=== PATIENT | male | born 1960 | race Caucasian/White ===

== ENCOUNTER 2017-03-17 19:30 | Emergency (ER) | payer BC ==
[2017-03-17] MEDS ORDERED: Nitroglycerin 0.4 MG TAB (25 Tab Bottle) ONE (19:46)
[2017-03-17] MEDS ORDERED: Metoprolol Tartrate 5 MG/5 ML VIAL ONE (19:46)
[2017-03-17] MEDS ORDERED: Heparin 5,000 UNITS/ML VIAL ONE (19:52)
[2017-03-17] MEDS ORDERED: Heparin 25,000 units/D5W 500 ML ONE (19:58)
[2017-03-17 19:59] LABS: #Basophils 0.2 thou/uL (0.0-0.2); #Eosinphils 0.5 thou/uL (0.0-0.7); #Monocytes 0.9 thou/uL (0.11-0.59); #Neutrophils 4.3 thou/uL (1.40-6.50); %Basophils 1.8 % (0.0-1.0); %Eosinophils 4.6 % (0.0-10.0); %Lymphocytes 45.9 % (21.0-51.0); %Neutrophils 39.6 % (42.0-75.0); Hemoglobin 18.1 g/dL (14.0-18.0); Mean Corpuscular HGB CONC 33.5 g/dL (32.0-36.0); Mean Corpuscular Hemoglobin 31.1 pg (27.0-31.0); Mean Platelet Volume 8.3 fL (7.4-10.4); Platelet Count 221 thou/uL (130-400); RBC Distribution Width 11.8 % (11.5-14.5); Red Blood Cell (RBC) Count 5.82 mill/uL (4.70-6.10); White Blood Cell (WBC) Count 10.9 thou/uL (4.8-10.8)
[2017-03-17] MEDS ORDERED: Clopidogrel Bisulfate 75 MG TAB ONE ×2 (20:01→20:04)
[2017-03-17 20:05] LABS: PTT 25.8 SEC (22.9-36.1); Prothrombin Time 13.4 SEC (12.0-14.7)
[2017-03-17 20:12] LABS: ALT (SGPT) 36 U/L (8-55); AST (SGOT) 33 U/L (5-34); Albumin 4.1 g/dL (3.5-5.0); Alkaline Phosphatase 132 U/L (40-150); Anion Gap 18 mmol/L (10-20); BUN (Urea Nitrogen) 14 mg/dL (8.4-25.7); Bilirubin, Total 0.5 mg/dL (0.2-1.2); Calc. Creatinine Clearance 0 mL/min (70-130); Calcium 9.6 mg/dL (7.8-10.44); Carbon Dioxide 23 mmol/L (22-29); Chloride 101 mmol/L (98-107); Estimated GFR-MDRD 57; Globulin 3.7 g/dL (2.4-3.5); Glucose 144 mg/dL (70-105); Protein, Total 7.8 g/dL (6.0-8.3); Sodium 138 mmol/L (136-145)
[2017-03-17 20:19] LABS: CKMB 7.7 ng/mL (0-6.6)
[2017-03-17] MEDS ORDERED: Sodium Chloride 0.9% 1,000 ML ONE (20:54)
== END 2017-03-17 20:15 | disposition short-term general hospital (02) ==
LOC: NAV ERS 19:30
DX: I21.19 ST elevation (STEMI) myocardial infarction involving other coronary artery of inferior wall (principal); E78.5 Hyperlipidemia, unspecified; I10 Essential (primary) hypertension; E66.9 Obesity, unspecified; Z87.442 Personal history of urinary calculi; Z79.899 Other long term (current) drug therapy
CPT/HCPCS: 80053; 82553; 84484; 85025; 85610; 85730; 93005; 94760; 96374; 96375; J1644; J7050